=== PATIENT | female | born 1980 | race Caucasian/White ===

== ENCOUNTER 2023-05-31 18:55 | Emergency (ER) | payer OTHER ==
[~2023-05-31] VITALS: Ht 162.5 cm; Wt 63.5 kg
[2023-05-31] MEDS ORDERED: NAPROSYN500 MG PO (20:08)
[2023-06-02] MEDS ORDERED: DAILY VALUE1 EACH PO (11:31)
[2023-06-02] MEDS ORDERED: PROVENTIL HFA6.7 GM INH (11:32)
[2023-06-03] MEDS ORDERED: HYDROCODONE-AC1 EAC1 PO (09:17)
== END 2023-05-31 20:40 | disposition home or self-care (01) ==
LOC: ED 18:55
DX: S52.571A Other intraarticular fracture of lower end of right radius, initial encounter for closed fracture (principal); X50.1XXA Overexertion from prolonged static or awkward postures, initial encounter; Y93.64 Activity, baseball; Y92.39 Other specified sports and athletic area as the place of occurrence of the external cause; Y99.8 Other external cause status

== ENCOUNTER → 2023-06-03 | Day surgery (SDC) | payer OTHER ==
[2023-06-02 11:30] VITALS: BP 128/60
[2023-06-02 12:51] LABS: BUN 10 mg/dl (9-23); CHLORIDE 106 mmol/L (98-107); POTASSIUM 3.9 mmol/L (3.4-5.1)
[~2023-06-03] VITALS: Ht 162.5 cm; Wt 63.5 kg
[~2023-06-03] MED LIST: DAILY VALUE1 EACH PO; HYDROCODONE-AC1 EAC1 PO; NAPROSYN500 MG PO; PROVENTIL HFA6.7 GM INH
[2023-06-03 09:13] VITALS: BP 114/63
[2023-06-03 11:11] VITALS: BP 100/54
[2023-06-03 11:22] VITALS: BP 110/54
[2023-06-03 11:25] VITALS: BP 106/54
[2023-06-03 11:40] VITALS: BP 102/54
[2023-06-03 11:51] VITALS: BP 107/60
== END ==
LOC: SDC 06-02 11:45
PROVIDERS: ATTEND Orthopaedic Surgery
DX: S52.571A Other intraarticular fracture of lower end of right radius, initial encounter for closed fracture (principal); E78.00 Pure hypercholesterolemia, unspecified; J45.909 Unspecified asthma, uncomplicated; C17.3 Meckel's diverticulum, malignant; K76.0 Fatty (change of) liver, not elsewhere classified; Z79.899 Other long term (current) drug therapy; Z98.890 Other specified postprocedural states; X58.XXXA Exposure to other specified factors, initial encounter; Y92.89 Other specified places as the place of occurrence of the external cause; Y93.89 Activity, other specified; Y99.8 Other external cause status

== ENCOUNTER → 2023-06-18 | Outpatient (CLI) | payer OTHER | END | disposition home or self-care (01) | LOC: ORTHO 01:20 | PROVIDERS: ATTEND Orthopaedic Surgery | DX: S52.571D Other intraarticular fracture of lower end of right radius, subsequent encounter for closed fracture with routine healing (principal); X58.XXXD Exposure to other specified factors, subsequent encounter ==

== ENCOUNTER → 2023-07-21 | Outpatient (CLI) | payer OTHER | END | disposition home or self-care (01) | LOC: ORTHO 01:14 | PROVIDERS: ATTEND Orthopaedic Surgery | DX: S52.571D Other intraarticular fracture of lower end of right radius, subsequent encounter for closed fracture with routine healing (principal); M79.89 Other specified soft tissue disorders; X58.XXXD Exposure to other specified factors, subsequent encounter ==

== ENCOUNTER → 2024-04-12 | Outpatient (CLI) | payer OTHER | END | disposition home or self-care (01) | LOC: ORTHO 08:46 | PROVIDERS: ATTEND Orthopaedic Surgery | DX: M75.41 Impingement syndrome of right shoulder (principal) ==